=== PATIENT | male | born 1970 | race Two or more races ===

== ENCOUNTER 2018-02-25 21:43 | Inpatient (IN) | payer OTHER ==
[~2018-02-25] VITALS: Ht 177.8 cm; Wt 131.5 kg
[~2018-02-25 21:43] MED LIST: APRESOLINE 10MG10 MG; ATORVASTATIN CA10 MG; PLAVIX75 MG; PROZAC20 MG; SYNTHROID112 MCG; VALSARTAN-HCTZ1 EAC4
[2018-02-25] MEDS ORDERED: ALDACTONE25 MG (22:03)
[2018-02-25] MEDS ORDERED: TAMS0.4C (22:03)
[2018-02-25] MEDS ORDERED: OXICODONE (22:05)
== END 2018-02-27 16:59 | disposition home or self-care (01) | DRG 392 ==
LOC: ER 21:43 → MEDJ 02-26 12:55
DX: K57.32 Diverticulitis of large intestine without perforation or abscess without bleeding (principal); I10 Essential (primary) hypertension; E78.4 Other hyperlipidemia; E66.8 Other obesity; E03.8 Other specified hypothyroidism; N20.0 Calculus of kidney

== ENCOUNTER 2018-02-27 22:26 | Emergency (ER) | payer OTHER ==
[~2018-02-27] VITALS: Ht 177.8 cm; Wt 127.0 kg
[~2018-02-27 22:26] MED LIST changes: +ALDACTONE25 MG; +OXICODONE; +TAMS0.4C
== END 2018-02-28 12:41 | disposition home or self-care (01) ==
LOC: ER 22:26
DX: K57.92 Diverticulitis of intestine, part unspecified, without perforation or abscess without bleeding (principal); N20.0 Calculus of kidney; R10.32 Left lower quadrant pain

== ENCOUNTER 2019-05-19 13:34 | Outpatient (CLI) | payer OTHER ==
[~2019-05-19 13:34] MED LIST changes: +METFORMIN HCL500 MG
== END 2019-05-19 13:41 | disposition home or self-care (01) ==
LOC: RAD 13:34
DX: N20.0 Calculus of kidney (principal)

== ENCOUNTER 2019-07-03 07:00 | Outpatient (CLI) | payer OTHER ==
[~2019-07-03 07:00] MED LIST changes: -SYNTHROID112 MCG; +SYNTHROID112 MCG PO
[2019-07-03] MEDS ORDERED: ATORVASTATIN CA10 MG PO (12:40)
[2019-07-03] MEDS ORDERED: HYDRALAZINE HCL25 MG PO (12:41)
== END 2019-07-03 07:10 | disposition home or self-care (01) ==
LOC: LAB 07:00 → ADM 07-04 08:00 → CIR.AMB 07-07 07:00 → EDSTATUS 07-17 08:00
DX: N20.0 Calculus of kidney (principal); Z01.818 Encounter for other preprocedural examination

== ENCOUNTER → 2019-09-18 | Day surgery (SDC) | payer OTHER ==
[~2019-09-18] MED LIST changes: +ATORVASTATIN CA10 MG PO; +HYDRALAZINE HCL25 MG PO; +NORVASC2.5 MG
== END | disposition home or self-care (01) ==
LOC: ADM 09-13 11:15 → CIR.AMB 09:00 → ADM 11:15 → CIR.AMB 11:15
DX: N20.1 Calculus of ureter (principal)

== ENCOUNTER 2019-10-30 06:00 | Day surgery (SDC) | payer OTHER | END 2019-10-30 13:00 | disposition home or self-care (01) | LOC: CIR.AMB 06:00 | DX: N20.0 Calculus of kidney (principal) ==

== ENCOUNTER 2019-12-20 11:57 | Outpatient (CLI) | payer OTHER | END 2019-12-20 12:08 | disposition home or self-care (01) | LOC: SONOGRAMA 11:57 | DX: N20.0 Calculus of kidney (principal) ==

== ENCOUNTER → 2019-12-26 10:17 | Outpatient (CLI) | payer OTHER | END | disposition home or self-care (01) | LOC: LAB 10:17 | DX: E03.8 Other specified hypothyroidism (principal); E78.2 Mixed hyperlipidemia; E11.65 Type 2 diabetes mellitus with hyperglycemia; E55.9 Vitamin D deficiency, unspecified ==

== ENCOUNTER 2024-07-26 04:35 | Emergency (ER) | payer OTHER ==
[~2024-07-26] VITALS: Ht 177.8 cm; Wt 122.5 kg
[2024-07-26 04:54] VITALS: BP 136/84; O2SAT 99
[2024-07-26] MEDS ORDERED: ZEPBOUND2.5 MG/0.5 SUBCUTANEO (04:54)
[2024-07-26] MEDS ORDERED: PROMETHAZINE HCL 50 MG/ML AMPUL IM STA (05:41)
[2024-07-26] MEDS ORDERED: MEPERIDINE HCL/PF 50 MG/ML VIAL IM STA (05:42)
[2024-07-26] MEDS ORDERED: 0.9 % SODIUM CHLORIDE 1,000 ML IV ONE (05:45)
[2024-07-26 06:15] LABS: HEMATOCRIT 40.4 % (39.0-48.0); MEAN CORPUSCULAR HEMOGLOBIN 31.9 pg (27.00-32.0); MEAN CORPUSCULAR HGB CONC 34.7 g/dl (32.0-36.0); PLATELET COUNT 267 K/uL (150-450); RED BLOOD COUNT 4.39 M/uL (4.00-6.00); RED CELL DISTRIBUTION WIDTH 14.2 % (11.5-14.5)
[2024-07-26 06:28] LABS: INR 0.97; PARTIAL THROMBOPLASTIN TIME 29.6 SECONDS (22.0-34.0); PROTHROMBIN TIME 10.6 SECONDS (9.0-11.5)
[2024-07-26 06:32] LABS: ALBUMIN 3.7 gm/dL (3.4-5.0); BILIRUBIN TOTAL 0.25 mg/dL (0.3-1.2); CALCIUM 9.1 mg/dL (8.5-10.1); CREATININE SERUM 0.92 mg/dL (0.70-1.30); GFR 85.1; GLOBULINA 4.3 G/DL (2.4-3.5); POTASSIUM 3.63 mEq/L (3.5-5.1)
[2024-07-26 09:53] LABS: URINE APPEARANCE Clear; URINE BILIRRUBIN Negative (NEGATIVE); URINE BLOOD Negative; URINE COLOR Yellow; URINE GLUCOSE Negative (NEGATIVE); URINE KETONE 15 (NEGATIVE); URINE LEUKOCYTE Negative; URINE NITRATE Negative; URINE UROBILINOGEN 0.2 E.U./dl
[2024-07-26 09:57] LABS: URINE BACTERIA 6.1 uL (0.0-1933); URINE EPITHELIAL CELLS 2.8 uL (0.0-38.8); URINE RBC 28.7 uL (0.0-20.8); URINE WBC 4.5 uL (0.0-23.2)
[2024-07-26 10:00] LABS: URINE CAST 0.58 uL (0.0-1.40); URINE PROTEIN 100 (NEGATIVE)
== END 2024-07-26 15:53 | disposition home or self-care (01) ==
LOC: ER 04:38
PROVIDERS: General Practice
DX: R10.32 Left lower quadrant pain (principal); R10.9 Unspecified abdominal pain; I10 Essential (primary) hypertension; Z88.8 Allergy status to other drugs, medicaments and biological substances; Z91.013 Allergy to seafood
CPT/HCPCS: 36415; 74177; Q9965

== ENCOUNTER 2025-04-14 22:10 | Emergency (ER) | payer OTHER ==
[~2025-04-14] VITALS: Ht 177.8 cm; Wt 123.4 kg
[~2025-04-14 22:10] MED LIST changes: +ZEPBOUND2.5 MG/0.5 SUBCUTANEO
[2025-04-14] MEDS ORDERED: DILTIAZEM 24HR240 MG PO (22:29)
[2025-04-14] MEDS ORDERED: DIOVAN320 MG (22:29)
[2025-04-14] MEDS ORDERED: EPLERENONE25 MG PO (22:29)
[2025-04-14] MEDS ORDERED: LEVOTHYROXINE25 MCG PO (22:30)
[2025-04-14] MEDS ORDERED: PROZAC20 MG PO (22:30)
[2025-04-14] MEDS ORDERED: TAMSULOSIN HCL 0.4 MG CAP PO STA (23:14)
[2025-04-14] MEDS ORDERED: MORPHINE SULFATE 4 MG/ML VIAL IV STA (23:14)
[2025-04-15 00:13] LABS: BASO % 0.5 % (0.1-1.2); EOS # 0.03 (0.04-0.54); EOS % 0.3 % (0.7-7.0); LYMPH # 2.19 (1.18-3.74); LYMPH % 23.7 % (19.3-53.1); MEAN PLATELET VOLUME 10.20 fl (9.4-12.4); MONO # 0.71 (0.24-0.82); MONO % 7.7 % (4.7-12.5); NEUT # 6.25 (1.56-6.13); NEUT % 67.7 % (34.0-71.1); RED CELL DISTRIBUTION WIDTH 13.2 % (11.6-14.4)
[2025-04-15 00:53] LABS: BUN CREA RATIO 19.0 (7.0-25.0); CREATININE SERUM 2.2 mg/dL (0.70-1.30); GFR 31.0; GLUCOSE FASTING 115.0 mg/dL (65-100); OSMOLALITY SERUM 294.0 MOSM/KG (275-295)
[2025-04-15 02:52] LABS: URINE APPEARANCE Clear; URINE BILIRRUBIN Negative (NEGATIVE); URINE BLOOD Trace; URINE COLOR Yellow; URINE GLUCOSE Negative (NEGATIVE); URINE KETONE 15 (NEGATIVE); URINE LEUKOCYTE Negative; URINE NITRATE Negative; URINE PROTEIN 30 (NEGATIVE); URINE UROBILINOGEN 0.2 E.U./dl
[2025-04-15 02:55] LABS: URINE BACTERIA 7.1 uL (0.0-1933); URINE CAST 4.10 uL (0.0-1.40); URINE EPITHELIAL CELLS 4.3 uL (0.0-38.8); URINE RBC 41.3 uL (0.0-20.8); URINE WBC 5.8 uL (0.0-23.2)
[2025-04-15 02:58] LABS: TYPE CELLS SQUAMOUS
== END 2025-04-15 05:16 | disposition left against medical advice (07) ==
LOC: ER 22:10
DX: R10.9 Unspecified abdominal pain (principal); Z88.3 Allergy status to other anti-infective agents; Z91.013 Allergy to seafood